=== PATIENT | male | born 1990 | race Caucasian/White ===

== ENCOUNTER 2021-10-16 18:43 | Emergency (ER) | payer MEDICAID | END 2021-10-16 22:25 | disposition home or self-care (01) | LOC: ED 18:43 | DX: T71.161A Asphyxiation due to hanging, accidental, initial encounter (principal) | CPT/HCPCS: 36415; 70450; 70498; 71045; 80053; 83605; 85025; 99285-25; G0480; J7030; J7121; Q9967 ==